=== PATIENT | male | born 1960 | race Caucasian/White ===

== ENCOUNTER 2016-09-23 12:47 | Emergency (ER) | payer OTHER ==
[~2016-09-23 12:47] MED LIST: LUBRICANT 0.5-015 ML OPH; POLYTRIM EYE DR10 ML OPH
[2016-09-23 12:53] VITALS: BP 126/83
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
== END 2016-09-23 13:30 ==
LOC: ERH 12:47
DX: S39.012A Strain of muscle, fascia and tendon of lower back, initial encounter (principal); S13.4XXA Sprain of ligaments of cervical spine, initial encounter; V49.40XA Driver injured in collision with unspecified motor vehicles in traffic accident, initial encounter